=== PATIENT | male | born 1965 | race Caucasian/White ===

== ENCOUNTER 2017-05-08 05:34 | Inpatient (IN) | payer OTHER ==
[2017-04-30 10:44] LABS: HEMATOCRIT 43.5 % (42.0-52.0); HEMOGLOBIN 15.2 gm/dL (14.0-18.0); MCH 30.4 pg (26.0-34.0); MCHC 34.9 g/dL (28.0-37.0); RDW 12.9 % (10.5-14.5); WBC 12.3 thou/uL (4.0-11.0)
[2017-04-30 10:49] LABS: URINE BILIRUBIN NEGATIVE (Negative); URINE BLOOD TRACE (Negative); URINE COLOR YELLOW; URINE GLUCOSE-RANDOM* NEGATIVE (Negative); URINE KETONES 1+ (Negative); URINE LEUKOCYTES-REFLEX NEGATIVE (Negative); URINE PROTEIN (DIPSTICK) NEGATIVE (Negative); URINE UROBILINOGEN 0.2 E.U./dl (0.2-1.0)
[2017-04-30 10:55] LABS: ALBUMIN 4.4 g/dL (3.4-5.0); CREATININE 1.3 mg/dL (0.7-1.3); POTASSIUM 3.3 mmol/L (3.5-5.1)
[2017-04-30 11:00] LABS: PROTIME 9.9 Seconds (9.3-11.4)
[2017-05-08] VITALS (12 sets, daily range): BP systolic 106–145; BP diastolic 69–102
[~2017-05-08] VITALS: Ht 172.7 cm; Wt 76.7 kg
--- NOTE | ~2017-05-08 | EKG ---
[place] [address] [facility] [place] [address] ELECTROCARDIOGRAM REPORT Name: MIRANDA NAVARRO Room #: PRE IN .R.#: [id number] Admission: Attend Phys: Jeremias Zamora MD Discharge: Date of : 65 Report #: [id number] THIS REPORT FOR: //name// [facility] Test Date: 2017-04-30 Test Time: 10:33:26 Pat Name: MIRANDA NAVARRO Department: Room: Gender: Human Resources Mgr: georges : 1965 Requested By: Jeremias Zamora Order Number: [id number] MD: Colton Weaver Measurements Intervals [place] Rate: 84 P: -14 [place]: 141 QRS: -16 QRSD: 95 T: 13 QT: 382 QTc: 452 Interpretive Statements Sinus rhythm Abnormal R-wave progression, early transition Left ventricular hypertrophy No previous ECG available for comparison Electronically Signed On 05-02-2017 7:08:28 CDT by Colton Weaver [email or web address] <ELECTRONICALLY SIGNED> By: Colton Weaver MD, [facility] 05/02/17 0708 1033 1033 Colton Weaver MD, FACC /EPI
--- NOTE | ~2017-05-08 | O ---
[facility] [place] [address] OPERATIVE REPORT Name: MIRANDA NAVARRO Room #: 150-4 ADM IN M.R.#: [id number] Admission: 05/08/17 Attend Phys: Jeremias Zamora MD Discharge: Date of : 65 Report #: [id number] THIS REPORT FOR: //name// CC: Tom Zamora DATE OF SERVICE: 05/08/2017 PREOPERATIVE DIAGNOSIS: Left knee degenerative joint disease, severe. POSTOPERATIVE DIAGNOSIS: Left knee degenerative joint disease, severe. PROCEDURE: Left total knee arthroplasty. SURGEON: Jeremias Zamora M.D. SECURITY SME: NAZ Sanchez. ANESTHETIC: General. INDICATIONS: See hospital H and P revisions, 05/08/2017. IMPLANTS UTILIZED: Used a DePuy PFC knee system. We used a cruciate-retaining femoral component size 4 left. We used a size 4 tibial tray with a 10 mm insert and a 41 mm oval dome patella. DESCRIPTION OF PROCEDURE: After adequate general anesthesia had been obtained, the patient's left lower extremity was prepped and draped in the usual meticulous sterile fashion. Limb was exsanguinated with gravity, tourniquet inflated to 300 torr. An anterior midline incision was made, subQ divided sharply. Hemostasis obtained with electrocautery. A medial parapatellar incision was made. Infrapatellar fat pad excised. Medial release performed. The drill was used to drill the distal femur. This hole was enlarged, irrigated, suctioned, and the intramedullary guide placed the full length of the femur. The distal femoral cutting guide pinned to the appropriate height and distal femoral cut was made. The measurement device determined the size 4 as appropriate size for this patient. We marked the distal femur, impacted the cutting guide into position and the anterior, posterior and chamfer cuts were made. Rongeur was used to remove additional osteophytes. At this time, the ACL was transected, tibia translated anteriorly, menisci were excised. The drill was used to drill the central portion of the tibia. This hole was enlarged, irrigated, suctioned, and the intramedullary guide placed the full length of the tibia. The proximal tibial cutting guide was placed at appropriate height. Proximal tibial cut was made. A 4 tray gave us the best [address] [address] OPERATIVE REPORT Name: RAMONMIRANDA Uriarte Room #: 150-4 ADM IN M.R.#: [id number] Admission: 05/08/17 Attend Phys: Jeremias Zamora MD Discharge: Date of : 65 Report #: [id number] coverage on the tibia. The trial components were put in position and with the 10 spacer, he had the best flexion and extension gap, patella tracked normally. Patella was then measured, cutting guide clamped into place, patellar cut was made. A 41 template gave us the best coverage. We put the trial component in position and it tracked normally. We did pay particular attention to his bipartite portion of his patella. It was very stable with no instability and did not appear to cause any mechanical irrigation to tracking and so I elected to leave that in position as it was moderate in size and his vastus lateralis was attached to this portion of the patella. At this point, the knee was taken through several cycles of flexion and extension. The tibial tray rotation marked, distal femur drilled, trial components were removed. We made the tibial keel cuts. We then irrigated the knee with both pulse lavage and antibiotic irrigation. Bone plugs were placed in proximal tibia and distal femur. The cement was vacuum mixed and when it reached the appropriate consistency, the knee was thoroughly dried, the tibial tray was cemented in place. Excess cement was removed. The polyethylene was impacted in place and the femur impacted in place and the knee was taken out to 30 degrees of flexion with uniform compression placed across components. Patellar button was then cemented into place and again excess cement was removed. At this time, irrigation was placed in the wound and allowed to rest in the wound until the cement fully cured. When it had done so, the knee was irrigated, dried thoroughly, and inspected. Drains were placed superolaterally both deep and superficial. The retinacular layer was closed with combination of interrupted [id number] #1 Vicryl as well as running #1 Tevdek. SubQ closed with 2-0 Monocryl, skin closed with clinton. Sterile compressive dressing was applied. Tourniquet deflated. By: [id number] 1022 Jeremias Zamora MD /nt
[~2017-05-08 05:34] MED LIST: ASPIR 8181 MG PO; HYDROCHLOROTHIA25 M1 PO; IBUPROFEN 600600 M1 PO; NORCO 5-325 TA1 EACH PO; NORVASC10 MG PO; ZESTRIL40 MG PO; ZOCOR 20 MG TAB20 M1 PO
[2017-05-09] VITALS (7 sets, daily range): BP systolic 112–159; BP diastolic 76–110
[2017-05-09 05:49] LABS: HEMATOCRIT 36.2 % (42.0-52.0); HEMOGLOBIN 12.6 gm/dL (14.0-18.0); MCH 30.9 pg (26.0-34.0); MCHC 34.9 g/dL (28.0-37.0); MCV 88.4 fL (80.0-100.0); RBC 4.09 mil/uL (4.50-6.00); RDW 12.8 % (10.5-14.5); WBC 14.1 thou/uL (4.0-11.0)
[2017-05-10 00:13] VITALS: BP 146/97
[2017-05-10 03:03] VITALS: BP 150/109
[2017-05-10 03:30] VITALS: BP 148/111
[2017-05-10 06:07] LABS: HEMATOCRIT 35.2 % (42.0-52.0); HEMOGLOBIN 12.5 gm/dL (14.0-18.0); MCH 31.3 pg (26.0-34.0); MCHC 35.6 g/dL (28.0-37.0); MCV 87.7 fL (80.0-100.0); RBC 4.01 mil/uL (4.50-6.00); RDW 12.9 % (10.5-14.5); WBC 10.9 thou/uL (4.0-11.0)
[2017-05-10 09:00] VITALS: BP 146/97
[2017-05-10 19:27] VITALS: BP 125/89
[2017-05-11 03:08] VITALS: BP 141/97
[2017-05-11 05:57] LABS: HEMATOCRIT 36.1 % (42.0-52.0); HEMOGLOBIN 12.5 gm/dL (14.0-18.0); MCH 30.9 pg (26.0-34.0); MCHC 34.6 g/dL (28.0-37.0); MCV 89.5 fL (80.0-100.0); RBC 4.03 mil/uL (4.50-6.00); RDW 12.9 % (10.5-14.5); WBC 10.7 thou/uL (4.0-11.0)
[2017-05-11] MEDS ORDERED: PERCOCET 10-321 EACH PO (06:50)
[2017-05-11] MEDS ORDERED: XARELTO10 MG PO (06:50)
[2017-05-11 10:19] VITALS: BP 124/85
[2017-05-11 10:24] VITALS: BP 124/85
== END 2017-05-11 12:03 | disposition home health service (06) | DRG 470 ==
LOC: TBA 05:34 → 5S 05:34 → PRE 07:12 → 5S 11:43
PROVIDERS: Orthopaedic Surgery
PROC: 0SRD0J9 Replacement of Left Knee Joint with Synthetic Substitute, Cemented, Open Approach (ICD-10-PCS; principal; 2017-05-08)
DX: M17.12 Unilateral primary osteoarthritis, left knee (principal); I10 Essential (primary) hypertension; E78.5 Hyperlipidemia, unspecified; E78.00 Pure hypercholesterolemia, unspecified; Z87.442 Personal history of urinary calculi; Z79.899 Other long term (current) drug therapy
CPT/HCPCS: 10785; 50010; 50101; 50415; 50954; 51130; 51225; 51320; 51412; 51771; 52001; 52282; 53000; 53078; 53364; 56525; 56527; 62110; 62900; 64041; 64043; 70005

== ENCOUNTER 2021-05-13 04:16 | Emergency (ER) | payer OTHER ==
[~2021-05-13] VITALS: Ht 172.7 cm; Wt 72.6 kg
[~2021-05-13 04:16] MED LIST changes: +PERCOCET 10-321 EACH PO; +XARELTO10 MG PO
[2021-05-13] MEDS ORDERED: MOBIC15 MG PO (06:21)
[2021-05-13] MEDS ORDERED: AMOXICILLIN 50500 M1 PO (06:21)
[2021-05-13 06:27] VITALS: BP 134/94
== END 2021-05-13 06:28 | disposition home or self-care (01) ==
LOC: ER 04:16
DX: H66.91 Otitis media, unspecified, right ear (principal); Z20.822 Contact with and (suspected) exposure to COVID-19; I10 Essential (primary) hypertension; E78.00 Pure hypercholesterolemia, unspecified; Z79.2 Long term (current) use of antibiotics; Z79.82 Long term (current) use of aspirin; Z79.899 Other long term (current) drug therapy

== ENCOUNTER → 2021-08-12 | Outpatient (CLI) | payer BC, OTHER ==
[~2021-08-12] MED LIST changes: +AMOXICILLIN 50500 M1 PO; +MOBIC15 MG PO
== END ==
LOC: MRI 07:47
PROVIDERS: ATTEND Nurse Practitioner
DX: M47.816 Spondylosis without myelopathy or radiculopathy, lumbar region (principal); M54.50 Low back pain, unspecified; M43.17 Spondylolisthesis, lumbosacral region

== ENCOUNTER → 2021-10-04 | Outpatient (CLI) | payer BC, OTHER | LOC: CAT 10:41 | PROVIDERS: ATTEND Neurological Surgery | DX: M47.817 Spondylosis without myelopathy or radiculopathy, lumbosacral region (principal); M43.17 Spondylolisthesis, lumbosacral region; M48.07 Spinal stenosis, lumbosacral region ==